=== PATIENT | female | born 1955 | race Caucasian/White ===

== ENCOUNTER 2017-08-25 13:47 | Inpatient (IN) | payer BC, OTHER ==
[~2017-08-25] VITALS: Ht 160 cm; Wt 86.6 kg
--- NOTE | 2017-08-25 14:15 | NUR ---
Pre- Assessment Administration Pt seen in intake. Pt states that she is being admitted because "I have been drinking too much alcohol and taking too many pills for my anxiety". Pt VS are stable: BP 127/73, HR 77, T 98.4, R 17, SpO2: 98% on RA. Pt is agitated. Pt states "I was stuck on a plane with men who talked way too much, I don't want to talk". Pt will be seen by Dr Rosas and orders to be placed. Pt is stable and cleared to come to unit. Will continue to monitor pt.
[2017-08-25] MEDS ORDERED: LOPERAMIDE HCL 2 MG CAPSULE PO PRN ×2 (14:30)
[2017-08-25] MEDS ORDERED: LORAZEPAM 1 MG TABLET PO PRN ×2 (14:30)
[2017-08-25] MEDS ORDERED: MAG HYDROX/AL HYDROX/SIMETH 30 ML LIQUID UDC PO PRN (14:30)
[2017-08-25] MEDS ORDERED: MAGNESIUM HYDROXIDE 30 ML LIQUID UDC PO PRN (14:30)
[2017-08-25] MEDS ORDERED: THIAMINE HCL 200 MG/2 ML VIAL IM ONE (14:30)
[2017-08-25] MEDS ORDERED: diphenhydrAMINE 50 MG CAPSULE PO PRN (14:30)
[2017-08-25] MEDS ORDERED: LORAZEPAM 2 MG/1 ML VIAL IM PRN (14:30)
[2017-08-25] MEDS ORDERED: ACETAMINOPHEN 325 MG TABLET PO PRN (14:30)
[2017-08-25] MEDS ORDERED: ONDANSETRON ODT 4 MG TAB.RAPDIS SL PRN (14:30)
[2017-08-25] MEDS ORDERED: IBUPROFEN 400 MG TABLET PO PRN (14:30)
[2017-08-25] MEDS ORDERED: ONDANSETRON 4 MG/2 ML VIAL IM PRN (14:30)
[2017-08-25] MEDS ORDERED: MIRALAX 17 GM POWD.PACK PO PRN (14:30)
[2017-08-25] MEDS ORDERED: hydrALAZINE HCL 50 MG TABLET PO PRN (14:30)
[2017-08-25 15:20] VITALS: BP 127/77
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
[2017-08-25 15:23] LABS: BASOPHILS # (AUTO) 0.1 K/uL (0.0-8.0); BASOPHILS % (AUTO) 0.5 % (0.0-2.0); EOSINOPHILS # (AUTO) 0.1 K/uL (0.0-0.7); EOSINOPHILS % (AUTO) 1.2 % (0.0-7.0); HEMATOCRIT 46.8 % (37-47); HEMOGLOBIN 15.1 G/DL (12.0-16.0); LYMPHOCYTES # (AUTO) 1.7 K/UL (0.8-4.8); LYMPHOCYTES % (AUTO) 16.9 % (20.5-51.5); MEAN CORPUSCULAR HGB CONC 32 g/dL (32.0-37.0); MEAN CORPUSCULAR VOLUME 89.5 FL (81.0-99.0); MONOCYTES # (AUTO) 0.5 K/UL (0.1-1.30); MONOCYTES % (AUTO) 5.1 % (0.0-11.0); NEUTROPHILS # (AUTO) 7.8 K/UL (1.8-8.9); NEUTROPHILS % (AUTO) 76.3 % (38.5-71.5); PLATELET COUNT (AUTO) 343 K/UL (150-450); RED BLOOD CELL COUNT(AUTO) 5.23 MIL/UL (4.2-5.4); WHITE BLOOD COUNT (AUTO) 10.2 K/UL (4.0-11.2)
--- NOTE | 2017-08-25 15:28 | NUR ---
PRN administration Pt has a CIWA of 17, administered PRN ativan per MD order. Will continue to monitor pt.
[2017-08-25 15:46] LABS: ALANINE AMINOTRANSFERASE 35 U/L (14-59); ALKALINE PHOSPHATASE 115 U/L (50-136); ASPARTATE AMINOTRANSFERASE 25 U/L (15-37); BILIRUBIN,TOTAL 0.6 mg/dL (0.2-1.0); CARBON DIOXIDE 24 mmol/L (21-32); CHLORIDE 104 mmol/L (98-107); GLUCOSE 87 mg/dL (74-106); POTASSIUM 3.9 mmol/L (3.5-5.1); TOTAL PROTEIN, SERUM 8.5 g/dL (6.4-8.2); UREA NITROGEN, BLOOD 23 mg/dL (7-18)
[2017-08-25 15:47] LABS: AMYLASE 47 U/L (25-115)
[2017-08-25 15:56] LABS: ETHANOL < 3 MG/DL (0-0)
[2017-08-25 16:00] VITALS: BP 122/56
[2017-08-25 16:02] LABS: *URINE HCG, QUAL NEGATIVE (NEGATIVE)
[2017-08-25 16:07] LABS: *AMPHETAMINE, URINE NEGATIVE (NEGATIVE); *BARBITURATE, URINE NEGATIVE (NEGATIVE); *CANNABINOID, URINE NEGATIVE (NEGATIVE); *COCCAINE, URINE NEGATIVE (NEGATIVE); *OPIATE, URINE NEGATIVE (NEGATIVE); *PHENCYCLIDINE SCREEN,URINE NEGATIVE (NEGATIVE)
--- NOTE | 2017-08-25 16:28 | NUR ---
Reassessment Pt has a CIWA of 9. Pt states "I feel fine". Will continue to monitor pt. All needs addressed at this time.
[2017-08-25] MEDS ORDERED: MULT1TAB73 PO (17:07)
[2017-08-25] MEDS ORDERED: MELA3TAB PO (17:07)
[2017-08-25] MEDS ORDERED: ATOR20TA PO (17:07)
[2017-08-25] MEDS ORDERED: CLON0.5T PO (17:07)
[2017-08-25] MEDS ORDERED: ARIP2TAB11 PO (17:07)
[2017-08-25] MEDS ORDERED: FLUT9.9S NS (17:07)
[2017-08-25] MEDS ORDERED: DILT180C PO (17:07)
[2017-08-25] MEDS ORDERED: ASPI81TA31 PO (17:07)
--- NOTE | 2017-08-25 18:59 | NUR ---
End of shift note Pt was admitted for ETOH and benzo dependence. Pt has a PMhx of CAD, HTN, anxiety, and depression. Pt is allergic to sulfa, is full code and on a cardiac diet. Pt is scheduled to start on a 5 day ativan taper at 2100. Pt had one PRN dose of ativan, which was effective in reducing her s/s of withdrawal. Pt had a CIWA of 9 at 1628. Pt has no complaints at this time. Pt wants to be left alone and states that she just wants to read. Will endorse SBAR to oncoming nurse. All needs addressed at this time.
--- NOTE | 2017-08-25 19:15 | NUR ---
Start of Shift Note: Patient is a 62 y/o female admitted today 08/25/17 for ETOH and Benzo dependence. Patient reported drinking 500-750 ml of wine daily for 2 years. Patient also takes Klonopin 1-2mg daily for 1 year. Patient has PMHx of CAD, HTN, Dyslipidemia, Anxiety, Depression & hx of seizure 3x d/t benzo withdrawal. Patient is on a cardiac diet with allergies to Sulfa. Full Code status noted. Seizure and fall precaution observed. Patient placed on a 5-day Ativan taper to be started tonight @ 2100. Last CIWA is 9. Patient was given PRN Ativan 2mg during day shift. Patient is alert & oriented x4. No shortness of breath noted. Respiration even & unlabored. Abdomen soft & non-distended. No nausea/vomiting noted. Patient complains of constipation and anxiety. Patient observed with slight agitation and hand tremors. Patient denies any pain/discomfort. No nausea/vomiting noted. Safety measures in place. Bed locked in lowest position. Both side rails up. Call light within pts reach. Will continue to monitor patient.
[2017-08-25 20:00] VITALS: BP 122/67
[2017-08-25] MEDS: FLUTICASONE PROPIONATE NS PRN (20:53)
[2017-08-25] MEDS: ATORVASTATIN 20 MG PO SCH (20:53)
[2017-08-25] MEDS: GABAPENTIN 100 MG CAPSULE PO SCH ×2 (20:53→21:00)
--- NOTE | 2017-08-25 20:53 | NUR ---
PRN Miralax and Fluticasone Patient complains of constipation and nasal congestion. Abdomen soft & non-distended. No complaints of nausea/vomiting noted. PRN Miralax and Fluticasone administered as ordered. Will monitor for effectiveness of medication.
[2017-08-25] MEDS ORDERED: LORAZEPAM 1 MG TABLET PO SCH (21:00)
[2017-08-25] MEDS ORDERED: ATORVASTATIN 20 MG PO SCH (21:00)
--- NOTE | 2017-08-25 21:53 | NUR ---
PRN Reassessment PRN medication effective. Patient has some relief of her nasal congestion. Will continue to monitor for any bowel movement.
[2017-08-26] VITALS: BP 126/76
--- NOTE | 2017-08-26 07:07 | NUR ---
End of Shift Note: Patient is a 62 y/o female admitted yesterday 08/25/17 for ETOH and Benzo dependence. Patient reported drinking 500-750 ml of wine daily for 2 years. Patient also takes Klonopin 1-2mg daily for 1 year. Patient has PMHx of CAD, HTN, Dyslipidemia, Anxiety, Depression & hx of seizure 3x d/t benzo withdrawal. Patient is on a cardiac diet with allergies to Sulfa. Full Code status noted. Seizure and fall precaution observed. Patient started last night on a 5-day Ativan taper and tolerating well. Last CIWA is 5. Patient was given PRN Miralax for constipation and Fluticasone for nasal congestion, both medications were effective. Patient had an uneventful night. Patient remained stable and vitals remains WNL. Pt slept for a total of 7 hours. Pt consumed 700 ml of fluids. Voided 2x with no bowel movements. All needs attended & met. Safety measures in place. Will endorse pt to AM nurse.
--- NOTE | 2017-08-26 07:10 | NUR ---
Start of shift note SBAR report rcv'd. Pt was admitted for ETOH and benzo dependence. Pt has a PMhx of CAD, HTN, anxiety, and depression and withdrawal induced seizures. Pt is allergic to sulfa, is full code and on a cardiac diet. Pt is on day 2 of her 5 day ativan taper. Pt has no complaints at this time. Pt states that she feels comfortable and wants to rest. Will continue to monitor pt. All needs addressed at this time.
[2017-08-26 08:00] VITALS: BP 109/54
[2017-08-26] MEDS ORDERED: DOCUSATE SODIUM 250 MG CAPSULE PO SCH (09:00)
[2017-08-26] MEDS: GABAPENTIN 100 MG CAPSULE PO SCH ×2 (09:00→20:34)
[2017-08-26] MEDS ORDERED: DILTIAZEM 300 MG PO SCH (09:00)
[2017-08-26] MEDS ORDERED: TUBERCULIN,PURIF.PROT.DERIV. 5 TU/0.1 ML TEST ID ONE (09:00)
[2017-08-26] MEDS: DILTIAZEM 300 MG PO SCH (09:00)
--- NOTE | 2017-08-26 09:00 | NUR ---
Medication held Diltiazem held d/t BP of 94/54, HR 61. Dr Rosas aware. Rechecked pt BP x 3 times. 1st result: 109/54, then 95/50, then instructed pt to finish breakfast and ambulate around unit, pt BP of 94/54.
--- NOTE | 2017-08-26 09:00 | NUR ---
Clonidine held Pt clondine held d/t decreased BP of 109/54 per MD order. Will continue to hold medication. Pt agreed. Diltizeim held at this time, pt requesting medication at a later time, awaiting clarification on hold parameters per Dr Rosas. Addendum: 08/26/17 at 0959 by OSMIN PERALES RN Entered on wrong pt. No clondine held for this pt. Diltazeim being held at this time for clarification of order.
[2017-08-26] MEDS: BAYER ASPIRIN 81 MG PO SCH (09:32)
[2017-08-26] MEDS: MULTIVITAMINS,THERAPEUTIC TABLET PO SCH (09:32)
[2017-08-26] MEDS: THIAMINE HCL 100 MG TABLET PO SCH (09:32)
[2017-08-26] MEDS: LORAZEPAM 1 MG TABLET PO SCH ×3 (09:32→20:35)
[2017-08-26] MEDS: FOLIC ACID 1 MG TABLET PO SCH (09:32)
[2017-08-26] MEDS: FLUTICASONE PROPIONATE NS PRN (09:34)
--- NOTE | 2017-08-26 09:34 | NUR ---
PRN administration Pt c/o nasal congestion, administered PRN Flonase per MD order.
[2017-08-26 12:00] VITALS: BP 125/71
[2017-08-26] MEDS: NORMAL SALINE NASAL 45 ML BOTTLE NS PRN (14:42)
--- NOTE | 2017-08-26 14:42 | NUR ---
PRN administration Pt c/o nasal allergies/stuffy nose. Pt requested her saline nasal spray. Administered ocean spray per MD order. Will continue to monitor pt.
--- NOTE | 2017-08-26 15:12 | NUR ---
Reassessment Pt states that the nasal spray was effective in alleviating her stuffy nose. Will continue to monitor pt.
--- NOTE | 2017-08-26 15:17 | NUR ---
Therapist prompted client to attend group today, Client agreed to show up.
[2017-08-26 16:00] VITALS: BP 148/88
--- NOTE | 2017-08-26 19:05 | NUR ---
End of shift note Pt was admitted for ETOH and benzo dependence. Pt has a PMhx of CAD, HTN, anxiety, and depression and withdrawal induced seizures. Pt is allergic to sulfa, is full code and on a cardiac diet. Pt is on day 2 of her 5 day ativan taper and tolerating very well without any ASE. Pt has a CIWA of 3 at 1600. Pt states that she is comfortable at this time. Pt had her PRN flonase and ocean spray during the shift for her sinus congestion from her allergies. Pt has no complaints at this time. Pt states that she feels comfortable and wants to read her books. Encouraged pt to go to groups and activities. Pt is attending groups. All needs addressed at this time. Will endorse SBAR to oncoming nurse.
--- NOTE | 2017-08-26 19:05 | NUR ---
START OF SHIFT NOTE: Patient is a 62 year old female admitted to [facility] on 08/25/2017 for Alcohol and Benzodiazepines dependency. Patient continue 5 day Ativan Taper, tolerated well without ASE. Patient remains compliant with treatment plan, medications, and diet regime. Patient reports Allergy to Sulfa, is on Cardiac Diet, is on Full Code, is on Fall and Seizures precautions. Patient reports PMH: Anxiety, Depression, CAD, HTN, Dyslipidemia, Presbycusis of Right Ear, History of seizure x4. Patient report past surgical history: Breast augmentation, . Upon endorsement, patient is in her room alert and oriented x4 with stable gait, speech is soft and clear. CIWA 5. Patient presented anxious agitated, nervousness, with tremors, restlessness, and sweating. VSWNL. Respirations is even and unlabored. Patient denies SOB and chest pain. Lung Sounds clear bilaterally. Abdomen is soft, non-tender. Skin is warm and dry. Patient has healed closed scabs on chest. Encouraged fluids intake as tolerated. Encouraged to attend groups activities. All needs met. Safety measures on place: Call light within reach, bed is locked, and lowest position, padded rails up bilaterally. Patient endorsed by outgoing day shift nurse. Report received. Will continue to monitor closely.
[2017-08-26 20:00] VITALS: BP 105/60
[2017-08-26] MEDS: MIRTAZAPINE 15 MG TABLET PO SCH (20:35)
[2017-08-26] MEDS: ATORVASTATIN 20 MG PO SCH (20:45)
--- NOTE | 2017-08-26 21:00 | NUR ---
PATIENT REFUSED ORDERED GABAPENTIN 200 MG 2 CAPS PO ADMINISTRATION.
--- NOTE | 2017-08-27 | NUR ---
VS REFUSED AND COWS/CIWA DEFERRED Patient refused to be woken up for 0000 VS. COWS/CIWA deferred d/t patient sleeping to assess while patient is awake. Safety measures on place by hospital policy: Call light within reach; Bed in lowest position and locked; side rails up x2. Will continue to monitor.
--- NOTE | 2017-08-27 07:01 | NUR ---
END OF SHIFT NOTE: Patient is a 31 year old male admitted to [facility] on 08/25/2017 for Alcohol and Opioid dependency. Patient continue 4 day Ativan and 5 day Subutex Taper. Patient tolerated well without ASE. Patient remains compliant with treatment plan, medications, and diet regime. Patient reports NKA, is on Regular Diet, is on Full Code, is on Fall and Seizures precautions. Patient reports PMH: Anxiety, Depression, History of Heroin and Xanax Abuse, History of Bowel Obstruction, History of seizure" r/benzodiazepines withdrawal in 2005". Patient reports past surgical history: Appendectomy, Jaw surgery, Big Toe Fracture "with fixation with screw". Last COWS 6, CIWA 4 @0000. COWS/CIWA taken when patient's alert during the night. Last VS @0000: T: 97.9; BP: 125/80; HR:83; RR:17; RA O2 SAT: 96%. Pain level: "0/10". Patient denies SI/HI. Respirations unlabored and even. Abdomen is soft and non-tender. Skin is intact, warm and dry to touch. PRN Benadryl 50 mg 1 tab PO administrated for insomnia @2106 was effective. Patient slept 8 hours, intake 1,728 ml, voided x3. Encouraged fluids as tolerated. Encouraged to attend groups activities. All needs met. Safety measures on place. Call light within reach, bed in lowest position and locked, padded rails up bilaterally. Patient endorsed to day shift nurse. Addendum: 08/27/17 at 0704 by ISAAC DIGGS RN Wrong patient
--- NOTE | 2017-08-27 07:04 | NUR ---
END OF SHIFT NOTE: Patient is a 62 year old female admitted to [facility] on 08/25/2017 for Alcohol and Benzodiazepines dependency. Patient continue 5 day Ativan Taper, tolerated well without ASE. Patient remains compliant with treatment plan, medications, and diet regime. Patient reports Allergy to Sulfa, is on Cardiac Diet, is on Full Code, is on Fall and Seizures precautions. Patient reports PMH: Anxiety, Depression, CAD, HTN, Dyslipidemia, Presbycusis of Right Ear, History of seizure x4. Patient report past surgical history: Breast augmentation, . Patient refused to be woken up for 0000 and 0400 VS. COWS/CIWA deferred d/t patient sleeping to assess while patient is awake. Last CIWA 5 @1999. CIWA taken when patient's alert during the night. VSWNL. Patient denies SI/HI. Respirations unlabored and even. Abdomen is soft and non-tender. Skin is warm and dry to touch. Patient has healed closed scabs on chest. No PRN Medications given last night. Patient slept 6 hours, intake 1,000 ml, voided x3. Encouraged fluids as tolerated. Encouraged to attend groups activities. All needs met. Safety measures on place. Call light within reach, bed in lowest position and locked, padded rails up bilaterally. Patient endorsed to day shift nurse.
--- NOTE | 2017-08-27 07:13 | NUR ---
Start of Shift Patient Received from shift nurse manager nurse. Patient is a 62 year old female, admitted on 08/25/17 for ETOH Dependence, under the care of Dr. Rosas. Pt is full code cardiac diet continues on fall and seizure precautions and is allergic to sulfa. Patient is on a 5 day Ativan taper tolerating well. Reports past medical HX of CAD, HTN, anxiety, and depression and withdrawal induced seizures . Treatment plan tolerated well by the patient as evidenced by pts last CIWA score of 5 which was taken at 0400. Pt did not received any PRN medication last night. Pt is currently in her room laying in bed reading a book. All safety measures in place per hospital policy. Bed in lowest position, side rails up x2, call-light within reach. Will continue to monitor and provide support.
[2017-08-27 08:00] VITALS: BP 112/66
[2017-08-27] MEDS: MULTIVITAMINS,THERAPEUTIC TABLET PO SCH (09:12)
[2017-08-27] MEDS: THIAMINE HCL 100 MG TABLET PO SCH (09:13)
[2017-08-27] MEDS: FOLIC ACID 1 MG TABLET PO SCH (09:13)
[2017-08-27] MEDS: LORAZEPAM 1 MG TABLET PO SCH ×3 (09:13→17:44)
[2017-08-27] MEDS: GABAPENTIN 100 MG CAPSULE PO SCH ×2 (09:13→21:00)
[2017-08-27] MEDS: DILTIAZEM 300 MG PO SCH (09:16)
[2017-08-27] MEDS: BAYER ASPIRIN 81 MG PO SCH (09:16)
[2017-08-27 11:07] LABS: HEPATITIS B SURFACE AG Negative (Negative)
[2017-08-27 12:00] VITALS: BP 140/91
[2017-08-27 16:00] VITALS: BP 127/62
--- NOTE | 2017-08-27 19:27 | NUR ---
START OF SHIFT NOTE: Patient is a 62 year old female presenting to [facility] since 08/25/2017 for Alcohol and Benzodiazepines dependency. Patient continue ordered 5 day Ativan Taper Patient tolerated well without ASE. Patient remains compliant with treatment plan, medications, and diet regime. Patient reports Allergy to Sulfa, is on Cardiac Diet, is on Full Code, is on Fall and Seizures precautions. PMH: Anxiety, Depression, CAD, HTN, Dyslipidemia, Presbycusis of Right Ear, History of seizure x4. Past Surgical History: Breast augmentation, . Endorsed patient presenting in her room alert and oriented x4 with stable gait, speech is soft and clear. CIWA 5. VSWNL. Respirations is even and unlabored. Patient denies SOB and chest pain. Lung Sounds clear bilaterally. Abdomen is soft, non-tender. Skin is warm and dry. Patient has healed closed scabs on chest. Encouraged fluids intake as tolerated. Encouraged to attend groups activities. All needs met. Safety measures on place: Call light within reach, bed is locked, and lowest position, padded rails up bilaterally. Patient endorsed by outgoing day shift nurse. Report received. Will continue to monitor closely.
--- NOTE | 2017-08-27 19:27 | NUR ---
End Of Shift Patient is a 62 year old female, admitted on 08/25/17 for ETOH Dependence, under the care of Dr. Rosas. Pt is full code cardiac diet continues on fall and seizure precautions and is allergic to sulfa. Patient is on a 5 day Ativan taper tolerating well. VS monitored closely q 4 hours. Withdrawal symptoms were closely monitored. Initial CIWA 6. Patient encouraged adequate PO fluid intake as tolerated. Patient presented with tremors and anxiety during the day. Last CIWA 4. Per patient Ativan has been helping her with her withdrawal symptoms. Pt ate all of her meals. No PRN medications given during the day. Patient encouraged to attend group therapies/sessions to learn new coping skills to recent relapse, patient denies SI/HI. Participated in group and therapy sessions. All needs met and attended
[2017-08-27 20:00] VITALS: BP 120/63
[2017-08-27] MEDS ORDERED: LORAZEPAM 1 MG TABLET PO SCH (21:00)
[2017-08-27] MEDS: MIRTAZAPINE 15 MG TABLET PO SCH (21:02)
[2017-08-27] MEDS: ATORVASTATIN 20 MG PO SCH (21:02)
[2017-08-28] VITALS (7 sets, daily range): BP systolic 92–139; BP diastolic 52–77
--- NOTE | 2017-08-28 07:05 | NUR ---
Start of shift note SBAR report rcv'd. Pt was admitted for benzo and ETOH dependence. Pt reports an allergy to sulfa, is a full code and on a cardiac diet. Pt has a PMHx of CAD, HTN, dyslipidemia, anxiety, depression, presbicius R ear and withdrawal induced seizures x 4. Pt is on a 5 day ativan taper and tolerating well. Pt is currently resting in bed, pt has no complaints at this time. Will continue to monitor pt. All needs addressed at this time.
--- NOTE | 2017-08-28 07:06 | NUR ---
END OF SHIFT NOTE: Patient is a 62 year old female admitted to [facility] on 08/25/2017 for Alcohol and Benzodiazepines dependency. Patient continue 5 day Ativan Taper, tolerated well without ASE. Patient remains compliant with treatment plan, medications, and diet regime. Patient reports Allergy to Sulfa, is on Cardiac Diet, is on Full Code, is on Fall and Seizures precautions. Patient reports PMH: Anxiety, Depression, CAD, HTN, Dyslipidemia, Presbycusis of Right Ear, History of seizure x4. Patient report past surgical history: Breast augmentation, . Last CIWA 3 @0400. CIWA taken when patient's alert during the night. VSWNL. Patient denies SI/HI. Respirations unlabored and even. Abdomen is soft and non-tender. Skin is warm and dry to touch. Patient has healed closed scabs on chest. No PRN Medications given last night. Patient slept 6 hours, intake 1,000 ml, voided x3. Encouraged fluids as tolerated. Encouraged to attend groups activities. All needs met. Safety measures on place. Call light within reach, bed in lowest position and locked, padded rails up bilaterally. Patient endorsed to day shift nurse.
[2017-08-28] MEDS: MULTIVITAMINS,THERAPEUTIC TABLET PO SCH (09:00)
[2017-08-28] MEDS: LORAZEPAM 1 MG TABLET PO SCH ×3 (09:00→20:40)
[2017-08-28] MEDS: THIAMINE HCL 100 MG TABLET PO SCH (09:00)
[2017-08-28] MEDS: FOLIC ACID 1 MG TABLET PO SCH (09:00)
[2017-08-28] MEDS: GABAPENTIN 100 MG CAPSULE PO SCH ×2 (09:00→20:41)
[2017-08-28] MEDS: DILTIAZEM 300 MG PO SCH (09:01)
[2017-08-28] MEDS: NORMAL SALINE NASAL 45 ML BOTTLE NS PRN (09:01)
[2017-08-28] MEDS: BAYER ASPIRIN 81 MG PO SCH (09:01)
[2017-08-28] MEDS: FLUTICASONE PROPIONATE NS PRN (09:01)
--- NOTE | 2017-08-28 09:01 | NUR ---
PRN administration Pt states that she has congestion from her allergies. Requested her flonase and ocean spray. Administered per MD order. Will continue to monitor pt.
--- NOTE | 2017-08-28 09:31 | NUR ---
Reassessment Pt states that the medications were effective in alleviating her nasal congestion.
--- NOTE | 2017-08-28 15:44 | NUR ---
Assumed Care: Assumed care for the patient at this time. Patient is a 62 year old female admitted for ETOH dependence. Prior toad mission, patient was using 750cc wine or 500cc of gin daily and 1-2 mg of Klonopin daily x 1 year. Patient was placed on a 5-day Ativan taper as ordered. No adverse reactions noted. Patient is tolerating taper well. Reports past medical hx of CAD, HTN, dyslipidemia, anxiety, depression, and seizures in April 2016. Patient is on a cardiac diet. Allergic to SULFA. FULL CODE. Regular diet. On fall and seizure precautions. Last CIWA 2 at 1200. Will continue to monitor closely.
--- NOTE | 2017-08-28 15:49 | NUR ---
Endorsement SBAR report endorsed to Nurse. Pt has no complaints at this time.
--- NOTE | 2017-08-28 18:49 | NUR ---
End of Shift Notes: Patient continues to be on a 5-day Ativan taper as ordered. No adverse reactions noted. Withdrawal symptoms were closely monitored. Patient presented with anxiety. Last CIWA 2 at 1600. Patient participated in group and activities. VS monitored closely. No significant abnormalities noted. Compliant with care and treatment. All needs met and attended. Will continue to monitor.
--- NOTE | 2017-08-28 19:30 | NUR ---
Patient is a 62 year old female admitted to [facility] on 08-25-17 for alcohol detox. Patient is on a 5 day ativan taper. Patient last CIWA 2 at 1600. Patient vital signs are stable. Mood stable, attending unit groups. Tolerating diet and fluids. PMH include CAD, HTN, Anxiety, depression, as well as seizure history when withdrawing. Patient is on fall and seizure precautions. Safety measures in place, side rails up x 2, call light within reach. Report received from AM nurse Addendum: 08/29/17 at 0617 by KAREN CABALLERO RN Start of shift note
[2017-08-28] MEDS: MIRTAZAPINE 15 MG TABLET PO SCH (20:39)
--- NOTE | 2017-08-28 21:00 | NUR ---
Patient refused gabapentin 200 mg PO at 2100. Patient reports Gabapentin decreases ability for her to sleep and makes her feel restless at night.
[2017-08-28] MEDS: ATORVASTATIN 20 MG PO SCH (21:22)
--- NOTE | 2017-08-29 | NUR ---
CIWA deferred/VS refused Patient refused 0000 vital signs stating "I don't want to be woken up, I just want to sleep". Patient in bed eyes closed, breathing even and unlabored. R 16. CIWA deferred for sleep.
--- NOTE | 2017-08-29 04:11 | NUR ---
VS refused CIWA deferred. Patient refused vital signs at 0400. CIWA deferred for sleep.
--- NOTE | 2017-08-29 06:46 | NUR ---
End of shift Patient is a 62 year old female admitted to [facility] on 08-25-17 for alcohol detox. Patient is on a 5 day ativan taper. Patient is a full code, on a cardiac diet, with allergy to Sulfa. Patient vital signs at 1999 139/77, P 72, R 18, SPO2 96 % on RA T 97.6. CIWA 3. PMH include CAD, HTN, Anxiety, depression, as well as seizure history when withdrawing. Refused Gabapentin at 2100 stating it keeps her awake and makes her feel restless at night. Patient tolerating diet and fluids. Patient is on fall and seizure precautions. Safety measures in place, side rails up x 2, call light within reach. Intake 947 ml output 3 voids slept total of 9 hours. Report given to AM nurse
[2017-08-29 08:00] VITALS: BP 110/57
--- NOTE | 2017-08-29 08:00 | NUR ---
START OF SHIFT NOTE 62 year old female, admitted 08/25/17 for ETOH and Klonopin substance abuse detox. Allergy to Sulfa. History of seizure x 4 in 04/2016. On fall and seizure precaution. Full code. Cardiac diet. History of CAD, HTN, anxiety, depression. On 5 day Ativan taper. Received report from night RN. Last CIWA 3 at 8 pm. Slept rest of night. Has SCD's for VTE prophylaxis. 0800 nurse rounds, Pt alert and oriented, CIWA 1. Denies pain. Bed in low position, side rails up x 2 and padded. SCD's on. Call light within reach. Will continue to monitor.
[2017-08-29] MEDS: GABAPENTIN 100 MG CAPSULE PO SCH ×3 (08:14→17:00)
[2017-08-29] MEDS: FOLIC ACID 1 MG TABLET PO SCH (08:14)
[2017-08-29] MEDS: MULTIVITAMINS,THERAPEUTIC TABLET PO SCH (08:14)
[2017-08-29] MEDS: LORAZEPAM 1 MG TABLET PO SCH ×2 (08:14→21:09)
[2017-08-29] MEDS: THIAMINE HCL 100 MG TABLET PO SCH (08:14)
[2017-08-29] MEDS: DILTIAZEM 300 MG PO SCH (08:15)
[2017-08-29] MEDS: BAYER ASPIRIN 81 MG PO SCH (08:15)
[2017-08-29] MEDS: NORMAL SALINE NASAL 45 ML BOTTLE NS PRN (08:16)
--- NOTE | 2017-08-29 08:16 | NUR ---
PRN MEDICATION ADMINISTRATION Pt reported nasal congestion. Given PRN [place] nasal spray.
--- NOTE | 2017-08-29 09:16 | NUR ---
PRN MEDICATION REASSESSMENT Pt reports decrease in nasal congestion after PRN [place] nasal spray.
--- NOTE | 2017-08-29 10:00 | NUR ---
Activity Group Note: Attempt made for group participation. Client refused. Will attempt when time permits.
[2017-08-29 12:00] VITALS: BP 115/56
[2017-08-29] MEDS: HYDROXYZINE PAMOATE 25 MG CAPSULE PO PRN (13:03)
--- NOTE | 2017-08-29 13:03 | NUR ---
PRN MEDICATION ADMINISTRATION Pt reports [id number] 03/21. Given Vistaril PRN. Will reassess.
--- NOTE | 2017-08-29 13:45 | NUR ---
Activity Group Note: Attempt made for group participation. Client refused. Will attempt again when time permits.
--- NOTE | 2017-08-29 14:03 | NUR ---
PRN MEDICATION REASSESSMENT At 1403, Pt states decrease in anxiety after receiving Vistaril at 1303. Now stating she still has some anxiety related to wanting to know where she is going after discharge. CM working on this for patient and RN let Pt know that CM will let her know as soon as information available.
[2017-08-29] MEDS: FLUTICASONE PROPIONATE NS PRN (15:18)
[2017-08-29 16:00] VITALS: BP 117/80
[2017-08-29 17:00] VITALS: BP 123/73
--- NOTE | 2017-08-29 19:00 | NUR ---
END OF SHIFT NOTE 62 year old female, admitted 08/25/17 for ETOH and Klonopin substance abuse detox. Allergy to Sulfa. History of seizure x 4 in 04/2016. On fall and seizure precaution. Full code. Cardiac diet. History of CAD, HTN, anxiety, depression. On 5 day Ativan taper. Last CIWA 1. Given Vistaril at 1303 for anxiety and pt reported at 1403 the medication was effective. Moved from room 307 to room 323 to decrease noise for patient. Report given to night RN. Bed in low position, side rails up x 2 and padded. SCD's on. Call light within reach.
--- NOTE | 2017-08-29 19:30 | NUR ---
Start of shift Patient is a 62 year old female admitted to [facility] on 08-25-17 for alcohol detox. Patient is on a 5 day Ativan taper. Patient last CIWA 1 at 1600. Patient vital signs are stable. Mood stable, attending unit groups. Tolerating diet and fluids. PMH include CAD, HTN, Anxiety, depression, as well as seizure history when withdrawing. Patient is on fall and seizure precautions. Patient reports decreased anxiety after receiving a room change to a less "noisy" area of unit. Safety measures in place, side rails up x 2, call light within reach. Report received from AM nurse
[2017-08-29 20:00] VITALS: BP 138/77
[2017-08-29] MEDS: MIRTAZAPINE 15 MG TABLET PO SCH (21:09)
[2017-08-29] MEDS: ATORVASTATIN 20 MG PO SCH (21:09)
--- NOTE | 2017-08-30 00:12 | NUR ---
CIWA deferred Vital signs refused Patient refused Vital signs at 0000 CIWA deferred for sleep
--- NOTE | 2017-08-30 04:00 | NUR ---
CIWA deferred Vital signs refused Patient refused Vital signs at 0400 CIWA deferred for sleep
--- NOTE | 2017-08-30 07:04 | NUR ---
End of Shift report Patient is a 62 year old female admitted to [facility] on 08-25-17 for alcohol detox. Patient is on a 5 day Ativan taper. Patient vital signs are stable. Mood stable. Tolerating diet and fluids. PMH include CAD, HTN, Anxiety, depression, as well as seizure history when withdrawing. Patient is on fall and seizure precautions. CIWA 1 at 1999. VS BP 138/77, P 70, R 18, SPO2 94% on RA, T 98.3 Patient slept a total of 8 hours, intake 1500 ml output-2 void and 2 BM. Safety measures in place, side rails up x 2, call light within reach. Report given to AM nurse
--- NOTE | 2017-08-30 07:10 | NUR ---
Start of shift note SBAR report rcv'd. Pt was admitted for ETOH and benzo use. Pt is on her last day of a 5 day ativan taper. Pt reports an allergy to sulfa, is a full code and on a cardiac diet. Pt has a PMHx of CAD, HTN, dyslipidemia, anxiety, depression and a withdrawal induced seizures. Pt has no complaints at this time. Will continue to monitor pt. All needs addressed at this time.
[2017-08-30 08:00] VITALS: BP 118/70
[2017-08-30] MEDS: FOLIC ACID 1 MG TABLET PO SCH (08:08)
[2017-08-30] MEDS: MULTIVITAMINS,THERAPEUTIC TABLET PO SCH (08:08)
[2017-08-30] MEDS: NORMAL SALINE NASAL 45 ML BOTTLE NS PRN (08:09)
[2017-08-30] MEDS: BAYER ASPIRIN 81 MG PO SCH (08:09)
[2017-08-30] MEDS: DILTIAZEM 300 MG PO SCH (08:09)
[2017-08-30] MEDS: GABAPENTIN 100 MG CAPSULE PO SCH ×2 (08:09→16:48)
[2017-08-30] MEDS: THIAMINE HCL 100 MG TABLET PO SCH (08:09)
[2017-08-30] MEDS: FLUTICASONE PROPIONATE NS PRN (08:10)
--- NOTE | 2017-08-30 08:15 | NUR ---
PRN administration Pt c/o nasal congestion and allergies. Administered PRN ocean spray and flonase. Will continue to monitor pt. All needs addressed at this time.
[2017-08-30] MEDS ORDERED: LORAZEPAM 1 MG TABLET PO SCH (09:00)
--- NOTE | 2017-08-30 09:45 | NUR ---
Reassessment Pt states that the medication was effective in alleviating her sinus congestion.
[2017-08-30 12:00] VITALS: BP 135/82
--- NOTE | 2017-08-30 13:45 | NUR ---
Activity Group Note: Client participated in "[place]" activity. Intervention goal was to increase task focus and leisure skills. Client arrived on time to activity. She appeared to have a calm affect. Mood congruent. Client was able to understand and complete task. She stated, "I'm glad I came today... I didn't think I was going to, but I'm trying to put myself first while I'm here." She initiated conversation with peers and administrator social welfare throughout the activity. Client benefits from leisure activities, and administrator social welfare will continue to encourage participation in activity group.
[2017-08-30 16:00] VITALS: BP 145/81
[2017-08-30] MEDS ORDERED: MIRT15TA7 PO (16:58)
[2017-08-30] MEDS ORDERED: GABA-532 PO (16:58)
[2017-08-30] MEDS ORDERED: HYDR-3895 PO (16:58)
[2017-08-30] MEDS ORDERED: LORA-114 PO (16:58)
[2017-08-30] MEDS ORDERED: IBUP-1953 PO (16:58)
[2017-08-30] MEDS ORDERED: LORATADINE 10 MG TABLET PO SCH (17:00)
--- NOTE | 2017-08-30 19:12 | NUR ---
End of shift note Pt was admitted for ETOH and benzo use. . Pt reports an allergy to sulfa, is a full code and on a cardiac diet. Pt has a PMHx of CAD, HTN, dyslipidemia, anxiety, depression and a withdrawal induced seizures. Pt has completed her ativan taper and tolerated well. Pt states that she feels ready for discharge tomorrow. During shift, pt was started on Claritin for her allergies. Pt has no complaints at this time. Will endorse SBAR to oncoming shift.
[2017-08-30 20:00] VITALS: BP 124/74
[2017-08-30] MEDS: MIRTAZAPINE 15 MG TABLET PO SCH (20:35)
[2017-08-30] MEDS: ATORVASTATIN 20 MG PO SCH (20:35)
[2017-08-30] MEDS: HYDROXYZINE PAMOATE 25 MG CAPSULE PO PRN (20:35)
--- NOTE | 2017-08-31 07:10 | NUR ---
Start of shift note SBAR report rcv'd. Pt was admitted for ETOH and benzo dependence. Pt has completed a 5 day ativan taper. Pt is a full code, on a cardiac diet, and is allergic to sulfa. Pt is scheduled to discharge today to [facility]. Pt states that she feels ready for discharge. Pt has no complaints at this time. Will continue to monitor pt.
[2017-08-31 08:00] VITALS: BP 107/74
--- NOTE | 2017-08-31 09:48 | NUR ---
Discharge note Pt was admitted for ETOH and benzo dependence. Pt has a CIWA of 1. Pt VS are WNL. Pt has no complaints at this time. All needs addressed at this time. Pt verbalized her understanding of the discharge instructions. Pt medications, discharge instructions and all belongings returned to pt. Pt ID band removed, pt ambulated off of unit with [facility], left facility via [facility] for [facility].
== END 2017-08-31 10:07 | disposition other institution (70) | DRG 895 ==
LOC: SRC 13:47
PROVIDERS: ADMIT Internal Medicine; ATTEND Internal Medicine
PROC: HZ2ZZZZ Detoxification Services for Substance Abuse Treatment (ICD-10-PCS; principal; 2017-08-25)
PROC: HZ41ZZZ Group Counseling for Substance Abuse Treatment, Behavioral (ICD-10-PCS; 2017-08-26)
PROC: HZ31ZZZ Individual Counseling for Substance Abuse Treatment, Behavioral (ICD-10-PCS; 2017-08-27)
DX: F10.230 Alcohol dependence with withdrawal, uncomplicated (principal); E78.5 Hyperlipidemia, unspecified; F13.230 Sedative, hypnotic or anxiolytic dependence with withdrawal, uncomplicated; Y90.0 Blood alcohol level of less than 20 mg/100 ml; H91.11 Presbycusis, right ear; F41.9 Anxiety disorder, unspecified; I25.10 Atherosclerotic heart disease of native coronary artery without angina pectoris; G47.00 Insomnia, unspecified; F32.9 Major depressive disorder, single episode, unspecified; I10 Essential (primary) hypertension; E86.0 Dehydration; J30.2 Other seasonal allergic rhinitis; Z88.2 Allergy status to sulfonamides; Z82.49 Family history of ischemic heart disease and other diseases of the circulatory system; Z81.8 Family history of other mental and behavioral disorders; Z81.1 Family history of alcohol abuse and dependence
CPT/HCPCS: 36415; 70030-TC; 80307; 80346; 83735; 84703; 85025; 86580; 86592; 86705; 86803; 87340; 87806; A4663; G0480; J3411